=== PATIENT | female | born 1995 | race Caucasian/White ===

== ENCOUNTER 2019-06-19 15:33 | Outpatient (CLI) | payer OTHER | END 2019-06-19 18:30 | disposition home or self-care (01) | LOC: OBT 15:33 → L-D 15:33 → OBT 18:30 | DX: O30.002 Twin pregnancy, unspecified number of placenta and unspecified number of amniotic sacs, second trimester (principal); Z3A.21 21 weeks gestation of pregnancy; Z37.3 Twins, one liveborn and one stillborn | CPT/HCPCS: Z7500 ==